=== PATIENT | female | born 1990 | race American Indian/Alaskan Native ===

== ENCOUNTER 2020-09-19 14:14 | Outpatient (CLI) | payer MEDICAID ==
[2020-09-20 12:06] VITALS: BP 121/81
== END 2020-09-20 10:35 | disposition home or self-care (01) ==
LOC: LAB 14:14 → APU 09-20 10:00 → LAB 09-20 10:35
PROVIDERS: ATTEND Obstetrics & Gynecology
DX: O26.893 Other specified pregnancy related conditions, third trimester (principal); O16.3 Unspecified maternal hypertension, third trimester; Z67.41 Type O blood, Rh negative; Z3A.28 28 weeks gestation of pregnancy
CPT/HCPCS: 86850; 86900; 86901; 96372; J2790